=== PATIENT | female | born 1985 | race Caucasian/White ===

== ENCOUNTER 2018-03-12 20:00 | Observation (INO) | payer MEDICAID ==
[~2018-03-12] VITALS: Ht 152.4 cm; Wt 75.7 kg
[2018-03-12] MEDS ORDERED: PREN1TAB33 MT (20:40)
[2018-03-12] MEDS ORDERED: TERBUTALINE SULFATE 1MG/ML VIAL SUBCUT PRN (20:45)
[2018-03-12] MEDS ORDERED: LACTATED RINGERS 1,000 ML IV SCH (20:45)
== END 2018-03-12 22:45 | disposition home or self-care (01) ==
LOC: L&D 20:00
PROVIDERS: ADMIT Obstetrics & Gynecology; ATTEND Obstetrics & Gynecology
DX: O62.9 Abnormality of forces of labor, unspecified (principal); O26.893 Other specified pregnancy related conditions, third trimester; R10.9 Unspecified abdominal pain; Z3A.37 37 weeks gestation of pregnancy
CPT/HCPCS: 96360; 96372; 99281; G0378; J3105; J7120

== ENCOUNTER 2018-03-18 19:57 | Observation (INO) | payer MEDICAID ==
[~2018-03-18] VITALS: Ht 154.9 cm; Wt 73.0 kg
[~2018-03-18 19:57] MED LIST: PREN1TAB33 MT
== END 2018-03-18 20:45 | disposition home or self-care (01) ==
LOC: L&D 19:57
PROVIDERS: ADMIT Obstetrics & Gynecology; ATTEND Obstetrics & Gynecology
DX: Z34.93 Encounter for supervision of normal pregnancy, unspecified, third trimester (principal); Z3A.38 38 weeks gestation of pregnancy
CPT/HCPCS: 99281; G0378

== ENCOUNTER 2018-12-29 17:12 | Emergency (ER) | payer MEDICAID ==
[~2018-12-29] VITALS: Ht 152.4 cm; Wt 55.0 kg
[2018-12-29 17:39] VITALS: BP 121/77
== END 2018-12-29 23:19 | disposition left against medical advice (07) ==
LOC: ER 17:12
DX: R53.1 Weakness (principal); Z53.21 Procedure and treatment not carried out due to patient leaving prior to being seen by health care provider

== ENCOUNTER 2018-12-30 17:23 | Emergency (ER) | payer MEDICAID ==
[~2018-12-30] VITALS: Ht 154.9 cm; Wt 68.0 kg
[2018-12-30 19:49] VITALS: BP 114/70
== END 2018-12-30 20:05 | disposition home or self-care (01) ==
LOC: ER 17:23
DX: S90.112A Contusion of left great toe without damage to nail, initial encounter (principal); W01.0XXA Fall on same level from slipping, tripping and stumbling without subsequent striking against object, initial encounter; Y93.89 Activity, other specified; Y92.89 Other specified places as the place of occurrence of the external cause; Y99.8 Other external cause status
CPT/HCPCS: 73630; 81025; 99283; Z7610